=== PATIENT | female | born 1965 | race Caucasian/White ===

== ENCOUNTER 2019-01-24 23:26 | Emergency (ER) | payer OTHER ==
[~2019-01-24] VITALS: Ht 157.5 cm; Wt 80.7 kg
[2019-01-25] MEDS ORDERED: GUAIFENESIN AC473 ML PO (00:33)
== END 2019-01-25 00:58 | disposition home or self-care (01) ==
LOC: ED 23:26
DX: J44.0 Chronic obstructive pulmonary disease with (acute) lower respiratory infection (principal); J20.9 Acute bronchitis, unspecified; F17.200 Nicotine dependence, unspecified, uncomplicated
CPT/HCPCS: 71046; 99283-25